=== PATIENT | male | born 1990 | race Two or more races ===

== ENCOUNTER 2021-07-27 08:58 | Outpatient (CLI) | payer OTHER | END 2021-07-27 09:05 | disposition home or self-care (01) | LOC: LAB 08:58 | PROVIDERS: ATTEND Obstetrics & Gynecology | DX: Z20.818 Contact with and (suspected) exposure to other bacterial communicable diseases (principal); Z20.828 Contact with and (suspected) exposure to other viral communicable diseases ==

== ENCOUNTER 2021-07-29 19:12 | Emergency (ER) | payer OTHER ==
[~2021-07-29] VITALS: Ht 170.2 cm; Wt 113.4 kg
== END 2021-07-29 20:37 | disposition home or self-care (01) ==
LOC: ER 19:12
DX: M54.50 Low back pain, unspecified (principal)